=== PATIENT | female | born 1950 ===

== ENCOUNTER 2016-10-07 21:57 | Emergency (ER) | payer MEDICAID ==
[2016-10-07 22:19] VITALS: BP 120/72; PULSE 90; TEMP 99.1; O2SAT 97
--- NOTE | 2016-10-07 23:37 | C.PDOC ---
History Of Present Illness 65 y/o female presents to ED with complaints of sore throat for 2 days, associated fever and body aches. Patient denies Nausea/Vomiting/Diarrhea, Chest pain, shortness of breath or any other complaints. Time Seen by Provider: 10/07/16 22:53 Chief Complaint (Nursing): ENT Problem History Per: Patient History/Exam Limitations: no limitations Onset/Duration Of Symptoms: Days Current Symptoms Are (Timing): Still Present Location Of Pain: Throat Associated Symptoms: Fever, Other (Body aches) Severity: Mild Recent travel outside of the [place]: No Additional History Per: Patient Past Medical History Reviewed: Historical Data, Nursing Documentation, Vital Signs Vital Signs: Last Vital Signs Temp 99.1 F 10/07/16 22:17 Pulse 90 10/07/16 22: Resp 20 10/07/16 23:51 BP 120/72 10/07/16 22:17 Pulse Ox 97 10/08/16 00:23 - Medical History PMH: Diabetes, HTN, Hypercholesterolemia Family History: States: Unknown Family Hx - Social History Hx Tobacco Use: No Hx Alcohol Use: No Hx Substance Use: No - Immunization History Hx Tetanus Toxoid Vaccination: Yes Hx Influenza Vaccination: Yes Hx Pneumococcal Vaccination: Yes Review Of Systems Except As Marked, All Systems Reviewed And Found Negative. Constitutional: Positive for: Fever. Negative for: Chills Eyes: Negative for: Pain, Vision Change ENT: Negative for: Nose Congestion Cardiovascular: Negative for: Chest Pain Respiratory: Negative for: Cough, Shortness of Breath, Wheezing Gastrointestinal: Negative for: Nausea, Vomiting, Diarrhea Musculoskeletal: Negative for: Neck Pain Skin: Negative for: Rash Physical Exam - Physical Exam Appears: Non-toxic Skin: Normal Color, Warm Head: Atraumatic, Normacephalic Eye(s): bilateral: Normal Inspection, PERRL, EOMI Nose: Normal Throat: Erythema, Exudate (Positive) Neck: Supple, Other (Lymph nodes adenopathy on anterior neck) Chest: Symmetrical Cardiovascular: Rhythm Regular Respiratory: Normal Breath Sounds, No Rales, No Rhonchi, No Wheezing Gastrointestinal/Abdominal: No Tenderness, No Guarding, No Rebound Extremity: Normal ROM Neurological/Psych: Oriented x3, Normal Speech, Normal Cognition, Cerebellar Signs, Normal Motor, Normal Sensation Gait: Steady ED Course And Treatment O2 Sat by Pulse Oximetry: 97 (Room air ) Pulse Ox Interpretation: Normal Medical Decision Making Medical Decision Making: Impression: A 65 y/o female with sore throat for 2 days, associated fever and body aches. Patient denies traveling, cough, N/V/D. Throat erythema suggested strep throat. Plan: Amoxicillin & Motrin Progress: Patient was given Amoxicillin and Motrin. Patient is resting and feels comfortable and will be discharged home with prescription amoxicillin. Disposition - Disposition Referrals: [facility] [Outside] Disposition: HOME/ ROUTINE Disposition Time: 23:35 Condition: GOOD Additional Instructions: Follow up with the medical doctor within 1-2 days without fail. Return if worsened. s Prescriptions: Amoxicillin 500 mg PO TID #29 tab Ibuprofen [Motrin] 1 tab PO TID PRN #30 tab PRN Reason: Pain Acetaminophen [Tylenol] 325 mg PO Q6 PRN #30 tab PRN Reason: Fever >100.4 F Instructions: Pharyngitis (ED) Print Language: GERMAN - Clinical Impression Clinical Impression: Pharyngitis - PA / NUTRITION HELPER / Resident Statement MD/DO has examined the patient and agrees with the treatment plan. - Scribe Statement Uvaldo Otoole All medical record entries made by the Scribe were at my direction and personally dictated by me. I have reviewed the chart and agree that the record accurately reflects my personal performance of the history, physical exam, medical decision making, and the department course for this patient. I have also personally directed, reviewed, and agree with the discharge instructions and disposition.
[2016-10-07 23:52] VITALS: RESP 20
== END 2016-10-07 23:51 | disposition home or self-care (01) ==
LOC: C.ER 21:57
DX: J02.9 Acute pharyngitis, unspecified (principal)

== ENCOUNTER 2017-12-21 17:37 | Emergency (ER) | payer MEDICAID ==
[2017-12-21 17:55] VITALS: BP 105/68; PULSE 73; TEMP 98.6
[2017-12-21] MEDS ORDERED: Oxymetazoline 0.05% Nasal Spray (30 ml) NS STA (18:25)
[2017-12-21] MEDS ORDERED: Oxymetazoline 0.05% Nasal Spray (30 ml) NS ONE (18:38)
[2017-12-21] MEDS ORDERED: Albuterol 0.083% Inhal Sol (2.5 mg/3 mL) UD ONE (18:42)
[2017-12-21] MEDS: Albuterol 0.083% Inhal Sol (2.5 mg/3 mL) UD INH SCH (18:44)
--- NOTE | 2017-12-21 19:05 | C.PDOC ---
History Of Present Illness 67 y/o female presents to the ER complaining of nasal congestion,coughing, sneezing, itchy throat, and watery eyes which has been present for the past 2 days. Patient states that she saw her doctor and she took Debra with no relief. Patient reports that she has pain to the chest and back now because she has been coughing and sneezing so much. Denies having fever, chills, nausea, vomiting. Time Seen by Provider: 12/21/17 18:12 Chief Complaint (Nursing): Back Pain History Per: Patient History/Exam Limitations: no limitations Onset/Duration Of Symptoms: Days Current Symptoms Are (Timing): Still Present Severity: Moderate Past Medical History Reviewed: Historical Data, Nursing Documentation, Vital Signs Vital Signs: Last Vital Signs Temp 98.6 F 12/21/17 17:53 Pulse 73 12/21/17 17:53 Resp 20 12/21/17 19:16 BP 105/68 12/21/17 17:53 Pulse Ox - Medical History PMH: Diabetes, HTN, Hypercholesterolemia Surgical History: No Surg Hx Family History: States: No Known Family Hx - Social History Hx Tobacco Use: No Hx Alcohol Use: No Hx Substance Use: No - Immunization History Hx Tetanus Toxoid Vaccination: Yes Hx Influenza Vaccination: Yes Hx Pneumococcal Vaccination: Yes Review Of Systems Except As Marked, All Systems Reviewed And Found Negative. Constitutional: Negative for: Fever, Chills Eyes: Positive for: Other (watery eyes) ENT: Positive for: Nose Congestion Respiratory: Positive for: Cough Physical Exam - Physical Exam Appears: Non-toxic, No Acute Distress, Other (awake, alert, cooperative) Skin: Normal Color, Warm, Dry Head: Atraumatic, Normacephalic Eye(s): bilateral: Normal Inspection, Other (watery ) Ear(s): Bilateral: Normal Nose: Normal Oral Mucosa: Moist Throat: Normal, No Erythema, No Exudate Neck: Supple Chest: Symmetrical Cardiovascular: Rhythm Regular Respiratory: Normal Breath Sounds, No Rales, No Rhonchi, No Wheezing Gastrointestinal/Abdominal: Normal Exam, Soft, No Tenderness, No Guarding, No Rebound Neurological/Psych: Oriented x3, Normal Speech Medical Decision Making Medical Decision Making: Plan: --Albuterol --Prednisone PO Updates: Patient has been discharged and instructed to follow up with doctor. Disposition Counseled Patient/Family Regarding: Diagnosis, Need For Followup, Rx Given - Disposition Disposition: HOME/ ROUTINE Disposition Time: 19:02 Condition: STABLE Additional Instructions: Preet de la cruz doctor. Prescriptions: Albuterol HFA [Ventolin HFA 90 mcg/actuation (8 g)] 2 puff IH [id number] #1 inh Prednisone [Deltasone] 40 mg PO DAILY #8 tablet Instructions: Seasonal Allergies (DC) Forms: Gen Discharge Inst Samoan, [facility] (Samoan) - POA Present On Arrival: None - Clinical Impression Clinical Impression: Seasonal allergies - Scribe Statement The provider has reviewed the documentation as recorded by the Yo Grace Provider Attestation: All medical record entries made by the Robertaibe were at my direction and personally dictated by me. I have reviewed the chart and agree that the record accurately reflects my personal performance of the history, physical exam, medical decision making, and the department course for this patient. I have also personally directed, reviewed, and agree with the discharge instructions and disposition.
[2017-12-21 19:17] VITALS: RESP 20
== END 2017-12-21 19:16 | disposition home or self-care (01) ==
LOC: C.ER 17:37
DX: J30.2 Other seasonal allergic rhinitis (principal); E11.9 Type 2 diabetes mellitus without complications; I10 Essential (primary) hypertension; E78.00 Pure hypercholesterolemia, unspecified